=== PATIENT | male | born 1940 | race Caucasian/White ===

== ENCOUNTER 2023-07-26 17:08 | Emergency (ER) | payer MEDICARE, BC ==
[~2023-07-26] VITALS: Ht 160 cm; Wt 106.6 kg
[2023-07-26 18:40] VITALS: BP 143/105
[2023-07-26] MEDS ORDERED: HYDR-4303 PO (21:29)
[2023-07-26] MEDS ORDERED: IBUP-1955 PO (21:29)
[2023-07-26] MEDS ORDERED: CEPH500C2 PO (21:29)
[2023-07-26] MEDS ORDERED: NALO4SPR BNOSTRILS (21:30)
[2023-07-26] MEDS ORDERED: LIDOCAINE 1%-EPI 1:100,000 20 ML VIAL ONE (21:57)
[2023-07-26] MEDS ORDERED: TDAP [DIPH/PERTUSSIS/TET] 0.5 ML VIAL IM ONE ×2 (21:58→22:00)
[2023-07-26] MEDS ORDERED: BACI/NEOM/POLY B OINT PKT 1 UDPKT PACKET TP ONE (22:00)
[2023-07-26] MEDS ORDERED: LIDOCAINE 1% INJ 50 ML MDV IJ ONE (22:00)
[2023-07-26 22:37] VITALS: TEMP 98.2; O2SAT 98
== END 2023-07-26 22:38 | disposition home or self-care (01) ==
LOC: ER 17:26
DX: S81.011A Laceration without foreign body, right knee, initial encounter (principal); S81.812A Laceration without foreign body, left lower leg, initial encounter; I10 Essential (primary) hypertension; E11.9 Type 2 diabetes mellitus without complications; F41.9 Anxiety disorder, unspecified; Z79.899 Other long term (current) drug therapy; W01.0XXA Fall on same level from slipping, tripping and stumbling without subsequent striking against object, initial encounter; Y93.89 Activity, other specified; Y92.89 Other specified places as the place of occurrence of the external cause; Y99.8 Other external cause status
CPT/HCPCS: 12005; 73564; 73590; 90471; 90715; 99284; A6403; J3490

== ENCOUNTER 2023-07-27 09:04 | Emergency (ER) | payer MEDICARE, BC ==
[~2023-07-27] VITALS: Ht 175.3 cm; Wt 106.6 kg
[~2023-07-27 09:04] MED LIST: CEPH500C2 PO; HYDR-4303 PO; IBUP-1955 PO; NALO4SPR BNOSTRILS
[2023-07-27 09:17] VITALS: BP 113/62; TEMP 98.2; O2SAT 97
== END 2023-07-27 10:38 | disposition home or self-care (01) ==
LOC: ER 09:09
DX: S81.812D Laceration without foreign body, left lower leg, subsequent encounter (principal); S81.811D Laceration without foreign body, right lower leg, subsequent encounter; I10 Essential (primary) hypertension; E11.9 Type 2 diabetes mellitus without complications; F41.9 Anxiety disorder, unspecified; Z79.899 Other long term (current) drug therapy
CPT/HCPCS: 99281; A6403

== ENCOUNTER 2023-10-11 14:23 | Emergency (ER) | payer MEDICARE, BC ==
[~2023-10-11] VITALS: Ht 175.3 cm; Wt 90.7 kg
[2023-10-11] MEDS: TDAP [DIPH/PERTUSSIS/TET] 0.5 ML VIAL IM ONE (15:30)
[2023-10-11] MEDS ORDERED: TDAP [DIPH/PERTUSSIS/TET] 0.5 ML VIAL IM ONE (15:52)
[2023-10-11 16:24] VITALS: BP 113/71; TEMP 98.2; O2SAT 98
[2023-10-12] MEDS ORDERED: KETO10TA2 PO (16:25)
== END 2023-10-11 16:39 | disposition home or self-care (01) ==
LOC: ER 14:25
DX: S51.011A Laceration without foreign body of right elbow, initial encounter (principal); I10 Essential (primary) hypertension; E11.9 Type 2 diabetes mellitus without complications; F41.9 Anxiety disorder, unspecified; W18.30XA Fall on same level, unspecified, initial encounter; Y93.89 Activity, other specified; Y92.89 Other specified places as the place of occurrence of the external cause; Y99.8 Other external cause status
CPT/HCPCS: 73080-TC; 90715

== ENCOUNTER 2023-10-12 14:36 | Emergency (ER) | payer MEDICARE, BC ==
[~2023-10-12] VITALS: Ht 177.8 cm; Wt 103.0 kg
[2023-10-12 14:50] VITALS: BP 120/63; TEMP 98.1; O2SAT 96
[2023-10-12] MEDS ORDERED: KETOROLAC TROMETHAMINE INJ 60 MG/2 ML VIAL IM ONE (15:30)
[2023-10-12] MEDS ORDERED: KETOROLAC TROMETHAMINE INJ 30 MG/ML VIAL ONE (15:35)
[2023-10-12] MEDS ORDERED: KETO10TA2 PO (16:25)
== END 2023-10-12 16:28 | disposition home or self-care (01) ==
LOC: ER 14:36
DX: S90.111A Contusion of right great toe without damage to nail, initial encounter (principal); I10 Essential (primary) hypertension; E11.9 Type 2 diabetes mellitus without complications; F41.9 Anxiety disorder, unspecified; Z79.899 Other long term (current) drug therapy; W18.39XA Other fall on same level, initial encounter; Y93.89 Activity, other specified; Y92.89 Other specified places as the place of occurrence of the external cause; Y99.8 Other external cause status
CPT/HCPCS: 99283; 96372; 73630; J1885

== ENCOUNTER 2023-12-12 19:57 | Inpatient (IN) | payer MEDICARE, BC ==
[~2023-12-12] VITALS: Ht 177.8 cm; Wt 89.4 kg
[2023-12-12] MEDS: VANCOMYCIN 1 GM in IV D5W 250 ML IV ONE (01:00)
[~2023-12-12 19:57] MED LIST changes: +KETO10TA2 PO
[2023-12-12 20:50] LABS: BASOPHILS % (AUTO) 0.1 % (0.0-2.0); EOSINOPHILS % (AUTO) 0.6 % (0.0-6.0); HEMATOCRIT 41 % (39-51); HEMOGLOBIN 13.1 g/dL (13.5-17.5); LYMPHOCYTES # (AUTO) 0.9 K/uL (0.8-4.8); LYMPHOCYTES % (AUTO) 19.5 % (20.0-44.0); MEAN CORPUSCULAR HEMOGLOBIN 32 PG (26.0-33.0); MEAN CORPUSCULAR HGB CONC 32 g/dl (31.0-36.0); MEAN CORPUSCULAR VOLUME 98 fL (80-96); MONOCYTES # (AUTO) 0.8 K/uL (0.1-1.30); MONOCYTES % (AUTO) 17.3 % (2.0-12.0); NEUTROPHILS # (AUTO) 2.8 K/uL (1.8-8.9); NEUTROPHILS % (AUTO) 62.5 % (43.0-81.0); PLATELET COUNT (AUTO) 166 K/uL (150-450); RED BLOOD CELL COUNT(AUTO) 4.12 MIL/uL (4.5-6.0); WHITE BLOOD COUNT (AUTO) 4.5 K/uL (4.3-11.0)
[2023-12-12] MEDS: IV NS 0.9% 1,000 ML BAG IV ONE (20:54)
[2023-12-12 21:06] LABS: ALANINE AMINOTRANSFERASE 28 U/L (12-78); ALBUMIN 3.7 g/dL (3.4-5.0); ALCOHOL, BLOOD 3 mg/dL (0-10); ALKALINE PHOSPHATASE 79 U/L (46-116); ASPARTATE AMINOTRANSFERASE 21 U/L (15-37); BILIRUBIN,DIRECT 0.5 mg/dL (0.0-0.2); BILIRUBIN,TOTAL 1.6 mg/dL (0.2-1.0); CALCIUM, SERUM 9.3 mg/dL (8.5-10.1); CARBON DIOXIDE 22 mmol/L (21-32); CHLORIDE 100 mmol/L (98-107); POTASSIUM 3.7 mmol/L (3.5-5.1); SODIUM SERUM 137 mmol/L (136-145); TOTAL PROTEIN, SERUM 6.6 g/dL (6.4-8.2); UREA NITROGEN, BLOOD 11 mg/dL (7-18)
[2023-12-12] MEDS ORDERED: OLANZAPINE 10 MG VIAL IM ONE (21:08)
[2023-12-12 21:11] LABS: ACETAMINOPHEN <10 ug/ml (10-30); GLUCOSE 114 mg/dL (74-106); SALICYLATE 0.8 mg/dL (2.8-20.0)
[2023-12-12] MEDS: OLANZAPINE 10 MG VIAL IM ONE (21:14)
[2023-12-12 21:39] LABS: LACTIC ACID 2.3 mmol/L (0.4-2.0)
[2023-12-12 22:12] LABS: LYMPHOCYTES % (MANUAL) 20 % (16-48); MONOCYTES % (MANUAL) 13 % (0-11.0); NEUTROPHILS % (MANUAL) 67 (42-76); PLATELET ESTIMATE ADEQUATE
[2023-12-12] MEDS ORDERED: CEFEPIME 1 GM VIAL ONE (22:26)
[2023-12-12] MEDS ORDERED: VANCOMYCIN 1 GM /D5W 250 ML PB IV ONE (22:27)
[2023-12-12] MEDS: CEFEPIME 1 GM in IV D5W 50 ML IV ONE (23:00)
[2023-12-12] MEDS ORDERED: MORPHINE SULFATE INJ 2 MG/ML DISP.SYRIN IV PRN (23:30)
[2023-12-12] MEDS ORDERED: ONDANSETRON HCL/PF 4 MG/2 ML VIAL IVP PRN (23:30)
[2023-12-12] MEDS ORDERED: hydrALAZINE HCL IV 20 MG VIAL IV PRN (23:30)
[2023-12-13 00:27] LABS: APPEARANCE,URINE CLEAR (CLEAR); BILIRUBIN,URINE 1+ (NEGATIVE); BLOOD, URINE TRACE-INTA Ery/uL (NEGATIVE); COLOR,URINE YELLOW (YELLOW); KETONES,URINE 1+ mg/dL (NEGATIVE); LEUKOCYTE ESTERASE ,URINE 2+ (NEGATIVE); NITRITE, URINE NEGATIVE (NEGATIVE); PROTEIN,URINE NEGATIVE (NEGATIVE); UGLUCOSE NEGATIVE (NEGATIVE)
[2023-12-13 01:32] LABS: AMPHETAMINE, URINE NEGATIVE (NEGATIVE); BARBITURATE, URINE NEGATIVE (NEGATIVE); BENZODIAZEPINE, URINE NEGATIVE (NEGATIVE); CANNABINOID, URINE NEGATIVE (NEGATIVE); COCCAINE, URINE NEGATIVE (NEGATIVE); OPIATE, URINE NEGATIVE (NEGATIVE); PHENCYCLIDINE SCREEN,URINE NEGATIVE (NEGATIVE)
[2023-12-13 02:00] VITALS: BP 138/68; TEMP 98.6; O2SAT 96
[2023-12-13 02:10] LABS: ADD URINE CULTURE YES; BACTERIA,URINE Moderate /HPF (None Seen); SQUAMOUS EPITHELIAL CELL,UR Moderate /HPF (None Seen); WBC,URINE 51-80 /HPF (0-3); YEAST,URINE Moderate /HPF (None Seen)
[2023-12-13] MEDS: IV NS 0.9% 1,000 ML IV SCH (02:19)
[2023-12-13] MEDS ORDERED: MAGN400O6 PO (08:38)
[2023-12-13] MEDS ORDERED: LEVO100T PO (08:38)
[2023-12-13] MEDS ORDERED: ZOLP5TAB2 PO (08:38)
[2023-12-13] MEDS ORDERED: DIVA-76 PO (08:38)
[2023-12-13] MEDS ORDERED: ASPI-1169 PO (08:38)
[2023-12-13] MEDS ORDERED: CLON0.5T PO (08:38)
[2023-12-13] MEDS ORDERED: *INS REG3 SQ (08:38)
[2023-12-13] MEDS ORDERED: DOCU100T2 PO (08:38)
[2023-12-13] MEDS ORDERED: FAMO20TA8 PO (08:38)
[2023-12-13] MEDS ORDERED: ACET-868 PO (08:38)
[2023-12-13] MEDS ORDERED: ATOR20TA PO (08:38)
[2023-12-13] MEDS ORDERED: QUET25TA PO (08:38)
[2023-12-13] MEDS ORDERED: CLOP75TA15 PO (08:38)
[2023-12-13] MEDS ORDERED: POVI3780 TP (08:38)
[2023-12-13] MEDS ORDERED: ALLA266C2 TP (08:38)
[2023-12-13] MEDS ORDERED: NA P133E RC (08:38)
[2023-12-13] MEDS ORDERED: BISA10SU11 RC (08:38)
[2023-12-13] MEDS ORDERED: METF-440 PO (08:38)
[2023-12-13] MEDS ORDERED: LOSA50TA39 PO (08:38)
[2023-12-13] MEDS ORDERED: CRAN425C6 PO (08:38)
[2023-12-13] MEDS ORDERED: HYDR-4077 PO (08:38)
[2023-12-13 08:53] LABS: BASOPHILS % (AUTO) 0.1 % (0.0-2.0); EOSINOPHILS % (AUTO) 0.4 % (0.0-6.0); HEMATOCRIT 35 % (39-51); HEMOGLOBIN 11.8 g/dL (13.5-17.5); LYMPHOCYTES # (AUTO) 0.7 K/uL (0.8-4.8); LYMPHOCYTES % (AUTO) 10.8 % (20.0-44.0); MEAN CORPUSCULAR HEMOGLOBIN 32 PG (26.0-33.0); MEAN CORPUSCULAR HGB CONC 34 g/dl (31.0-36.0); MEAN CORPUSCULAR VOLUME 94 fL (80-96); MONOCYTES # (AUTO) 1.2 K/uL (0.1-1.30); MONOCYTES % (AUTO) 17.3 % (2.0-12.0); NEUTROPHILS # (AUTO) 4.9 K/uL (1.8-8.9); NEUTROPHILS % (AUTO) 71.4 % (43.0-81.0); PLATELET COUNT (AUTO) 168 K/uL (150-450); RED BLOOD CELL COUNT(AUTO) 3.68 MIL/uL (4.5-6.0); RED CELL DISTRIBUTION WIDTH 15.1 % (11.5-15.0); WHITE BLOOD COUNT (AUTO) 6.8 K/uL (4.3-11.0)
[2023-12-13 09:01] LABS: ALBUMIN 3.2 g/dL (3.4-5.0); BILIRUBIN,TOTAL 1.4 mg/dL (0.2-1.0); CALCIUM, SERUM 8.5 mg/dL (8.5-10.1); CREATININE 1.2 mg/dL (0.6-1.3); MAGNESIUM 1.3 mg/dL (1.8-2.4); PHOSPHORUS 3.1 mg/dL (2.5-4.9); POTASSIUM 3.3 mmol/L (3.5-5.1); TOTAL PROTEIN, SERUM 5.8 g/dL (6.4-8.2)
[2023-12-13] MEDS: HEPARIN SODIUM, PORCINE 5000 UNITS/1 ML VIAL SQ SCH (10:04)
[2023-12-13] MEDS: MAGNESIUM OXIDE 400 MG TABLET PO SCH (12:00)
[2023-12-13 12:20] LABS: ANISOCYTOSIS 1+; BAND % (MANUAL) 2 % (0.0-5.0); LYMPHOCYTES % (MANUAL) 13 % (16-48); MONOCYTES % (MANUAL) 16 % (0-11.0); NEUTROPHILS % (MANUAL) 69 (42-76); PLATELET ESTIMATE ADEQUATE
[2023-12-13] MEDS: POTASSIUM CHLORIDE 20 MEQ TAB.PRT.SR PO ONE (12:37)
[2023-12-14] VITALS: BP 126/84; TEMP 98.5; O2SAT 96
[2023-12-14] MEDS: POTASSIUM CL. PREMIX PERIPHER. 50 ML IV SCH (01:01)
[2023-12-14 04:00] VITALS: BP 129/60; TEMP 98; O2SAT 96
[2023-12-14 08:00] VITALS: BP 126/61; TEMP 97.3; O2SAT 93
[2023-12-14 12:00] VITALS: BP 130/71; TEMP 97.5; O2SAT 98
[2023-12-14] MEDS: PROSOURCE / PROSTAT (PYXIS) 30 ML UDC PO SCH (18:12)
[2023-12-14] MEDS: QUETIAPINE FUMARATE 25 MG TABLET PO PRN (18:14)
[2023-12-14 20:00] VITALS: BP 124/51; TEMP 97.6; O2SAT 98
[2023-12-14] MEDS: ATORVASTATIN 10 MG TABLET PO SCH (21:21)
[2023-12-14] MEDS: LORAZEPAM 0.5 MG TABLET PO PRN (23:28)
[2023-12-15] VITALS: BP 122/76; TEMP 97.5; O2SAT 98
[2023-12-15 04:00] VITALS: BP 135/83; TEMP 98; O2SAT 98
[2023-12-15] MEDS: ACETAMINOPHEN 325 MG TABLET PO PRN (04:26)
[2023-12-15 08:00] VITALS: BP 98/59; TEMP 97.7; O2SAT 98
[2023-12-15 08:53] LABS: BASOPHILS % (AUTO) 0.2 % (0.0-2.0); EOSINOPHILS % (AUTO) 0.8 % (0.0-6.0); HEMATOCRIT 33 % (39-51); HEMOGLOBIN 11.1 g/dL (13.5-17.5); LYMPHOCYTES # (AUTO) 1.3 K/uL (0.8-4.8); LYMPHOCYTES % (AUTO) 24.5 % (20.0-44.0); MEAN CORPUSCULAR HEMOGLOBIN 32 PG (26.0-33.0); MEAN CORPUSCULAR HGB CONC 34 g/dl (31.0-36.0); MEAN CORPUSCULAR VOLUME 93 fL (80-96); MONOCYTES # (AUTO) 1.1 K/uL (0.1-1.30); MONOCYTES % (AUTO) 20.6 % (2.0-12.0); NEUTROPHILS # (AUTO) 2.9 K/uL (1.8-8.9); NEUTROPHILS % (AUTO) 53.9 % (43.0-81.0); PLATELET COUNT (AUTO) 184 K/uL (150-450); RED BLOOD CELL COUNT(AUTO) 3.48 MIL/uL (4.5-6.0); RED CELL DISTRIBUTION WIDTH 15.2 % (11.5-15.0); WHITE BLOOD COUNT (AUTO) 5.4 K/uL (4.3-11.0)
[2023-12-15] MEDS: ASPIRIN 81 MG TAB.CHEW PO SCH (09:20)
[2023-12-15] MEDS: CLOPIDOGREL BISULFATE 75 MG TABLET PO SCH (09:20)
[2023-12-15 09:31] LABS: CALCIUM, SERUM 8.4 mg/dL (8.5-10.1); CARBON DIOXIDE 22 mmol/L (21-32); CHLORIDE 104 mmol/L (98-107); GLUCOSE 106 mg/dL (74-106); POTASSIUM 3.6 mmol/L (3.5-5.1); SODIUM SERUM 139 mmol/L (136-145); UREA NITROGEN, BLOOD 11 mg/dL (7-18)
[2023-12-15] MEDS ORDERED: IV NS 0.9% 1,000 ML IV PRN (09:48)
[2023-12-15 12:00] VITALS: BP 98/59; TEMP 97.7; O2SAT 98
[2023-12-15 12:13] LABS: ANISOCYTOSIS 1+; BASOPHILS % (MANUAL) 0 % (0.0-2.0); EOSINOPHILS % (MANUAL) 0 % (0-4); LYMPHOCYTES % (MANUAL) 22 % (16-48); MONOCYTES % (MANUAL) 16 % (0-11.0); NEUTROPHILS % (MANUAL) 62 (42-76); OVALOCYTES 1+; PLATELET ESTIMATE ADEQUATE
[2023-12-15 16:00] VITALS: BP 149/75; TEMP 97.8; O2SAT 98
[2023-12-15 20:00] VITALS: BP 133/100; TEMP 97.9; O2SAT 98
[2023-12-16] VITALS: BP 140/91; TEMP 97.9; O2SAT 98
[2023-12-16 04:00] VITALS: BP 145/54; TEMP 98; O2SAT 98
[2023-12-16 08:00] VITALS: BP 142/90; TEMP 97.1; O2SAT 98
[2023-12-16 12:00] VITALS: BP 125/75; TEMP 97.1; O2SAT 98
[2023-12-16] MEDS ORDERED: FLUC100T8 PO (12:55)
[2023-12-16] MEDS ORDERED: Quetiapine Fumarate PO (12:55)
[2023-12-16] MEDS: FLUCONAZOLE (100 MG) 100 MG TABLET PO SCH (13:09)
[2023-12-16 16:00] VITALS: BP 126/81; TEMP 97.1; O2SAT 98
== END 2023-12-16 18:45 | DRG 640 ==
LOC: ER 20:09 → TELE1 23:27
PROVIDERS: ADMIT Internal Medicine; ATTEND Internal Medicine
DX: E86.0 Dehydration (principal); G93.41 Metabolic encephalopathy; F01.54 Vascular dementia, unspecified severity, with anxiety; F01.52 Vascular dementia, unspecified severity, with psychotic disturbance; F01.518 Vascular dementia, unspecified severity, with other behavioral disturbance; B37.49 Other urogenital candidiasis; F01.53 Vascular dementia, unspecified severity, with mood disturbance; E87.20 Acidosis, unspecified; I10 Essential (primary) hypertension; E11.9 Type 2 diabetes mellitus without complications; R29.6 Repeated falls; Z86.73 Personal history of transient ischemic attack (TIA), and cerebral infarction without residual deficits; Z20.822 Contact with and (suspected) exposure to COVID-19; F41.9 Anxiety disorder, unspecified; F29 Unspecified psychosis not due to a substance or known physiological condition; I87.2 Venous insufficiency (chronic) (peripheral); D64.9 Anemia, unspecified; F39 Unspecified mood [affective] disorder; E78.5 Hyperlipidemia, unspecified; E03.9 Hypothyroidism, unspecified; R53.1 Weakness; E66.9 Obesity, unspecified; D33.0 Benign neoplasm of brain, supratentorial; Z68.28 Body mass index [BMI] 28.0-28.9, adult; I25.2 Old myocardial infarction; Z79.84 Long term (current) use of oral hypoglycemic drugs; Z79.4 Long term (current) use of insulin
CPT/HCPCS: 36415; 71045-TC; 76700-TC; 80048-TC; 80053-TC; 80076-TC; 81001; 83605-TC; 83735-TC; 84100-TC; 85025-TC; 87040-TC; 87086-TC; 97110-TC; 97112-TC; 97530-TC; A4223; G0378; G0480; J0692; J1644; J3370; J3480; J3490; J7030; J7060